=== PATIENT | female | born 1985 | race Caucasian/White ===

== ENCOUNTER → 2020-01-03 13:48 | Outpatient (CLI) | payer OTHER, SELFPAY ==
[2020-01-03 15:50] LABS: TSH w/ Reflex to FT4 2.41 uIU/mL (0.47-4.68)
== END ==
PROVIDERS: Referring Provider Obstetrics & Gynecology; Visit Provider Obstetrics & Gynecology
DX: E03.8 Other specified hypothyroidism (principal)
CPT/HCPCS: 36415; 84443

== ENCOUNTER 2021-10-30 10:15 | Emergency (ER) | payer OTHER, SELFPAY ==
[2021-10-30 10:46] VITALS: BP 122/72; PULSE 58; RESP 19; TEMP 36.7; O2SAT 99; BMI 30.1
--- NOTE | 2021-10-30 12:43 | PC.NURSE ---
Pt reports abcess with MRSA in May, similar to current abcess on breast. Has been using warm compresses without improvement.
[2021-10-30] MEDS: KETOROLAC 30 MG/ML VIAL 15 MG IM (12:58)
[2021-10-30] MEDS: DOXYCYCLINE HYCLATE 100 MG TABLET PO (12:58)
[2021-10-30] MEDS: TET,DIPH,PERTUSS(ACELL),VAC/PF 0.5 ML SYRINGE IM (12:58)
[2021-10-30] MEDS: BACITRACIN OINT 0.9 GM PCKT 1 APPLIC TOP (12:59)
[2021-10-30] MEDS: LIDOCAINE 2% INJ SDV 5 ML (12:59)
--- NOTE | 2021-10-30 14:25 | ED.SKABFB ---
HPI - Skin/Abscess/Foreign Bdy <JALEESA Moreno - Last Filed: 10/30/21 14:37> General Chief complaint: Skin/Abscess/Foreign Body Stated complaint: Infected abcess on Rt breast Time Seen by Provider: 10/30/21 12:24 Source: patient Mode of arrival: Family Vehicle Limitations: no limitations History of Present Illness HPI narrative: This is a 35-year-old female with history of abscess on her back in May of 2021 who presents to the emergency department today for redness swelling and concern for abscess on her right breast approximately 3 in medial to the areola. She is scheduled for IVF implantation in 7 days and is G 0 P0 without allergies to antibiotics. She is living on [place], denies any cultures obtained to prior wounds, she is concerned for MRSA. She has been doing warm compresses and taking Tylenol as needed for pain. She denies any IV or other substance use. She denies any fevers, chills, nausea vomiting. She states that it has started to open up with a small scab. She denies any purulence drainage. She is not sure if her tetanus is up-to-date. Related Data Previous Rx's Medication Instructions Recorded doxycycline hyclate 100 mg tablet 100 mg PO BID 7 days #14 tabs 10/30/21 mupirocin 2 % topical ointment 1 applic topical BID #15 grams 10/30/21 Allergies Allergy/AdvReac Type Severity Reaction Status Date / Time No Known Drug Allergies Allergy Verified 10/30/21 10:49 Review of Systems <JALEESA Moreno - Last Filed: 10/30/21 14:37> Review of Systems Narrative: General: denies fever, chills Head/Neck: denies headache, neck pain Eyes: denies visual changes, eye pain Cardio: denies chest pain, palpitations Respiratory: denies shortness of breath, cough GI: denies abdominal pain, nausea, vomiting, or diarrhea : denies dysuria, hematuria or flank pain MSK: denies new joint pain, muscle weakness or swelling Skin: denies rash, itching or wound Neuro: denies numbness, tingling, dizziness Patient History <JALEESA Moreno - Last Filed: 10/30/21 14:37> Social History Smoking Status: Former smoker Smoking Status: Former smoker tobacco type: cigarettes alcohol intake frequency: 0-2 drinks per day Substance Use Type: does not use Exam <JALEESA Moreno - Last Filed: 10/30/21 14:37> Narrative Exam Narrative: Reviewed vitals signs and nursing notes. General: cooperative, comfortable, in no acute distress, well groomed HEENT: symmetrical facial expressions, moist mucous membranes Chest: Patient has a 2 cm round and raised area of erythema approximately 3 in medial to her right areola at 04:00 o'clock. No fluctuance but firm nodule in the middle with opening at surface, this was picked off with a 23 gauge needle, visible cellular debris verses sebaceous gland was removed. Wound was parotid and loculations were broke up, wound is approximately 1 cm long and 0.5 cm deep, this was thoroughly irrigated with normal saline, it was not large enough for packing and let to heal by secondary intention. GI: abdomen soft, nontender to palpation, nondistended, without masses, rebound tenderness or exquisite tenderness with exam. MSK: moves all extremities, neurovascularly intact, no weakness, normal tone Skin: brisk capillary refill, without pallor or erythema Neuro: normal speech and cognition, A&O x3, ambulatory, clear speech Psych: mental status is grossly normal, congruent mood, normal affect, pleasant and cooperative Initial Vital Signs Initial Vital Signs: Vital Signs Temperature 98.1 F 10/30/21 10:46 Pulse Rate 58 L 10/30/21 10:46 Respiratory Rate 19 10/30/21 10:46 Blood Pressure 122/72 10/30/21 10:46 Pulse Oximetry 99 10/30/21 10:46 Oxygen Delivery Method 10/30/21 10:46 <Radha Lee DO - Last Filed: 11/04/21 06:58> Initial Vital Signs Initial Vital Signs: Vital Signs Temperature 98.1 F 10/30/21 10:46 Pulse Rate 58 L 10/30/21 10:46 Respiratory Rate 19 10/30/21 10:46 Blood Pressure 122/72 10/30/21 10:46 Pulse Oximetry 99 10/30/21 10:46 Oxygen Delivery Method 10/30/21 10:46 Procedures <JALEESA Moreno - Last Filed: 10/30/21 14:37> Abscess I/D I&D #1: Site: chest Side (if applicable): right Sedation/analgesia: none Local Anesthetic: lidocaine 1% Amount of anesthesia used (mL): 2 Technique: needle aspiration and incised with #11 blade Amount of fluid expressed (mL): 5 Irrigation: Yes Packing used?: none Course <JALEESA Moreno - Last Filed: 10/30/21 14:37> Orders Ordered: Discontinued Medications Bacitracin (Bacitracin Oint 0.9 Gm Pckt) 1 applic TOP NOW ONE Stop: 10/30/21 12:42 Last Admin: 10/30/21 12:59 Dose: 1 applic Documented By: CARLITOS Cephalexin HCl (Cephalexin 250 Mg Capsule) 500 mg PO NOW ONE Stop: 10/30/21 12:42 Last Admin: 10/30/21 13:05 Dose: Not Given Documented By: CTS Diphtheria/Tetanus/Acell Pertussis (Tet,Diph,Pertuss(Acell),Vac/Pf 0.5 Ml Syringe) 0.5 ml IM .ONCE ONE Stop: 10/30/21 12:42 Last Admin: 10/30/21 12:58 Dose: 0.5 ml Documented By: CTS Doxycycline Hyclate (Doxycycline Hyclate 100 Mg Tablet) 100 mg PO NOW ONE Stop: 10/30/21 12:42 Last Admin: 10/30/21 12:58 Dose: 100 mg Documented By: CTS Ketorolac Tromethamine (Ketorolac 30 Mg/Ml Vial) 15 mg IM NOW ONE Stop: 10/30/21 12:42 Last Admin: 10/30/21 12:58 Dose: 15 mg Documented By: CTS Lidocaine HCl (Lidocaine 1% 20 Ml) 20 ml INJ INTRA-OP ONE Stop: 10/30/21 12:42 Last Admin: 10/30/21 12:59 Dose: Not Given Documented By: CTS Vital Signs Vital signs: Vital Signs - 8 hr 10/30/21 10:46 Temperature 98.1 F Pulse Rate 58 L Respiratory Rate 19 Blood Pressure 122/72 Pulse Oximetry 99 Oxygen Delivery Method Room Air <Radha Lee DO - Last Filed: 11/04/21 06:58> Orders Ordered: Discontinued Medications Bacitracin (Bacitracin Oint 0.9 Gm Pckt) 1 applic TOP NOW ONE Stop: 10/30/21 12:42 Last Admin: 10/30/21 12:59 Dose: 1 applic Documented By: CTS Cephalexin HCl (Cephalexin 250 Mg Capsule) 500 mg PO NOW ONE Stop: 10/30/21 12:42 Last Admin: 10/30/21 13:05 Dose: Not Given Documented By: CTS Diphtheria/Tetanus/Acell Pertussis (Tet,Diph,Pertuss(Acell),Vac/Pf 0.5 Ml Syringe) 0.5 ml IM .ONCE ONE Stop: 10/30/21 12:42 Last Admin: 10/30/21 12:58 Dose: 0.5 ml Documented By: CTS Doxycycline Hyclate (Doxycycline Hyclate 100 Mg Tablet) 100 mg PO NOW ONE Stop: 10/30/21 12:42 Last Admin: 10/30/21 12:58 Dose: 100 mg Documented By: CTS Ketorolac Tromethamine (Ketorolac 30 Mg/Ml Vial) 15 mg IM NOW ONE Stop: 10/30/21 12:42 Last Admin: 10/30/21 12:58 Dose: 15 mg Documented By: CTS Lidocaine HCl (Lidocaine 1% 20 Ml) 20 ml INJ INTRA-OP ONE Stop: 10/30/21 12:42 Last Admin: 10/30/21 12:59 Dose: Not Given Documented By: CTS Vital Signs Vital signs: Vital Signs - 8 hr 10/30/21 10:46 Temperature 98.1 F Pulse Rate 58 L Respiratory Rate 19 Blood Pressure 122/72 Pulse Oximetry 99 Oxygen Delivery Method Room Air MDM - Skin/Abscess/Foreign Bdy <JALEESA Moreno - Last Filed: 10/30/21 14:37> MDM Narrative Medical decision making narrative: This is a 35-year-old female presents to the emergency department with a red raised lesion on her right breast concerning for abscess without known history of MRSA but concern for having since patient has had 1 skin infection earlier this year. Patient had been doing warm compresses at home and wound was superficial, scab covering the opening of likely duct containing cellular verses sebaceous material. No drainage by needle aspiration, stab incision to enlarging opening with completed and 5 mL of firm odorless davidson material came out. This was irrigated afterwards with normal saline, bacitracin was applied to the wound edges, a Steri-Strip was applied and wound edges were left loose to allow for healing from base up and drainage. Patient understands to change her Band-Aid with gauze 2 to 3 times a day and apply topical mupirocin. Patient is scheduled to have IBS implantation in 7 days and was prescribed doxycycline for cellulitis for surrounding erythema to this wound. She will stop taking his antibiotic prior to implantation. Consultation with Dr. David who is on-call for OBGYN and we reviewed medication administration guidelines and Bactrim has reproductive considerations to not prescribe within 1 month of planned . Patient agrees with plan of care, she was also prescribed topical mupirocin ointment. Her tetanus was updated today as she did not remember the last time she had 1. Wound culture was obtained and is pending. Patient is appropriate and amenable to discharge home. Vital signs are stable on repeat examination is unremarkable. Patient has been informed of results. Patient has been given strict return to ER precautions for any new or worsening symptoms. Patient understands to follow up closely with outpatient providers as instructed. Patient understands plan and agrees to discharge home. All questions and concerns answered at this time. Discharge Plan Departure Patient Disposition: Home Clinical Impression: Abscess of skin or subcutaneous tissue, Cellulitis Instructions: DI for Cellulitis -- Adult, DI for Skin Abscess Activity Restrictions/Additional Instructions: *You have been diagnosed with infected skin around a clogged duct versus abscess with cellulitis. Please continue warm compresses, you can use cool compresses if it is helpful. Please take Tylenol as needed for pain, take your antibiotic up until the last day and use topical mupirocin ointment to help prevent worsening. Please do not occlude the wound and allow it to heal from the bottom up. You can shower as usual and for cleansing you can use 1-1 with saline and iodine. Please come back if you start feeling ill or if it gets worse. You can alternate with cool compresses for comfort. *What to do: *Please continue to take your regular medications as directed. [ x New medication prescriptions sent to your pharmacy: [ [facility]] [ ] New medication written as a paper prescription [ ] No new medications given *Please follow up with your primary care provider in 2-3 days, call for an appointment. Let them know you were seen in the Emergency Department and that we asked that you be seen for follow-up. We will electronically transmit a record of today's note if your PCP is in our system *If you do not have a primary care provider please contact [phone] to establish care with one of the [facility] primary care providers. *Return to Emergency Department if you should have any new, worsening, or concerning symptoms, such as [fever greater than 101F, chills, worsening pain, persistent vomiting or other bothersome symptoms]. Prescriptions: New doxycycline hyclate 100 mg tablet 100 mg PO BID 7 Days Qty: 14 0RF mupirocin 2 % ointment 1 applic topical BID Qty: 15 0RF Referrals: Rafaela Prado ARNP [Primary Care Provider] - Visit Report Forms: Patient Portal/API <Radha Lee DO - Last Filed: 11/04/21 06:58> Cosign ED Attending [place] Attestation: I was immediately available in the department for consultation. Documentation has been reviewed. I agree with assessment and plan.
== END 2021-10-30 14:06 | disposition home or self-care (01) ==
PROVIDERS: Emergency Provider Nurse Practitioner Critical Care Medicine; PCP Nurse Practitioner Family
DX: N61.1 Abscess of the breast and nipple (principal); Z23 Encounter for immunization
CPT/HCPCS: 10060; 87070; 87075; 87077; 87147; 87185; 87186; 87205; 90471; 96372; 99283; 90715; J1885

== ENCOUNTER → 2021-11-18 14:59 | Outpatient (CLI) | payer OTHER, SELFPAY ==
[2021-11-18 16:30] LABS: HCG Quantitative /Beta subunit 322.8 mIU/mL
== END ==
PROVIDERS: PCP Nurse Practitioner Family; Referring Provider Obstetrics & Gynecology Reproductive Endocrinology; Visit Provider Obstetrics & Gynecology Reproductive Endocrinology
DX: Z32.01 Encounter for pregnancy test, result positive (principal); Z13.29 Encounter for screening for other suspected endocrine disorder
CPT/HCPCS: 36415; 84702

== ENCOUNTER → 2021-11-20 07:40 | Outpatient (CLI) | payer OTHER, SELFPAY ==
[2021-11-20 09:51] LABS: HCG Quantitative /Beta subunit 643.5 mIU/mL
[2021-11-20 10:16] LABS: Thyroid Stimulating Hormone 5.61 uIU/mL (0.47-4.68)
== END ==
PROVIDERS: PCP Nurse Practitioner Family; Referring Provider Obstetrics & Gynecology Reproductive Endocrinology; Visit Provider Obstetrics & Gynecology Reproductive Endocrinology
DX: Z32.01 Encounter for pregnancy test, result positive (principal); Z13.29 Encounter for screening for other suspected endocrine disorder
CPT/HCPCS: 36415; 84443; 84702

== ENCOUNTER 2022-12-24 05:42 | Emergency (ER) | payer OTHER, SELFPAY ==
[2022-12-24] VITALS (11 sets, daily range): BP systolic 100–125; BP diastolic 57–70; PULSE 49–74; RESP 1–27; TEMP 36.6; O2SAT 96–100; BMI 30.1
--- NOTE | 2022-12-24 05:49 | DI.RAD.S_ITS ---
PROCEDURE: XR CHEST 1V INDICATIONS: chest pain TECHNIQUE: One view of the chest was acquired. COMPARISON: None. FINDINGS: Surgical changes and devices: None. Lungs and pleura: No consolidation or effusion. Mediastinum: Normal heart size Bones and chest wall: No suspicious bony lesions. Overlying soft tissues appear unremarkable. IMPRESSION: No acute radiographic abnormality on this single view study. Agree with prelim report. Dictated by: Leo Connell M.D. on 12/24/2022 at 7:51 Approved by: Leo Connell M.D. on 12/24/2022 at 7:52
[2022-12-24 06:00] LABS: Add Manual Diff / Slide Review NO; Basophils Absolute Auto 0 /uL (0-100); Basophils Percent Auto 0.3 % (0-2); Eosinophils Absolute Auto 100 /uL (0-450); Eosinophils Percent Auto 0.9 % (2-4); Hemoglobin 13.6 g/dL (12.0-16.0); Lymphocytes Absolute Auto 1300 /uL (1100-4500); Lymphocytes Percent Auto 14.3 % (25-40); Mean Corpuscular HGB Conc 34.1 % (30-36); Mean Corpuscular Hemoglobin 29.5 PG (26-34); Mean Corpuscular Volume 86.7 fL (80-100); Monocytes Absolute Auto 500 /uL (0-900); Monocytes Percent Auto 5.6 % (3-14); Neutrophils Absolute Auto 7200 /uL (1500-7000); Neutrophils Percent Auto 78.9 % (50-75); Platelet Count 230 X10^3/uL (150-400); Red Blood Cell Count 4.61 X10^6/uL (4.0-5.2); Red Cell Distribution Width 13.3 % (11.6-14.8); White Blood Cell Count 9.1 X10^3/uL (4.5-11.0)
--- NOTE | 2022-12-24 06:00 | ED_ITS ---
HPI - Chest Pain <Radha Lee DO - Last Filed: 12/26/22 07:09> General Chief Complaint: Chest Pain Stated Complaint: chest pain Time Seen by Provider: 12/24/22 05:49 Source: patient and EMS Mode of arrival: EMS Limitations: no limitations History of Present Illness HPI narrative: Patient is a 37-year-old female without significant past medical history presenting today with sudden onset of epigastric pain. She reports that she was sleeping when woke her from sleep he describes it as sharp stabbing pressure radiating to both right and left upper abdomen sometimes into her chest. It lasted for about 35 minutes ultimately went away. She did not take any medicine for it EMS gave her some Zofran because she was nauseous she is chest pain-free. She reports that she had an episode like this about 3 months ago and did not seek treatment at that time. She reports that she traveled to [place] a month ago. But has not had an and shortness of breath. She reports that she had numbness in both her arms she was in a full-body sweat she could not take a deep breath for 20 minutes. Related Data Previous Rx's Medication Instructions Recorded mupirocin 2 % topical ointment 1 applic topical BID #15 grams 10/30/21 Allergies Allergy/AdvReac Type Severity Reaction Status Date / Time No Known Drug Allergies Allergy Verified 10/30/21 10:49 Review of Systems <Ronny Parker MD - Last Filed: 01/04/23 07:19> Review of Systems Narrative: GENERAL: negative chills, fatigue, malaise, fever, sweats. HEENT: negative sinus pain, ear pain, sore throat RESPIRATORY: negative dyspnea, cough CARDIOVASCULAR: Positive chest pain, negative palpitations GASTROINTESTINAL: negative nausea, vomiting, positive abdominal pain : negative dysuria, frequency, hematuria MUSCULOSKELETAL: negative muscle or bony pain SKIN: negative rash, skin lesions NEUROLOGIC: negative weakness, numbness ROS Unobtainable: All systems reviewed & are unremarkable except as noted in HPI and below Patient History <Radha Lee DO - Last Filed: 12/26/22 07:09> Social History Smoking Status: Former smoker Smoking Status: Former smoker tobacco type: cigarettes alcohol intake frequency: 0-2 drinks per day Substance Use Type: does not use Exam <Radha Lee DO - Last Filed: 12/26/22 07:09> Initial Vital Signs Initial Vital Signs: Vital Signs Temperature 97.8 F 12/24/22 05:30 Pulse Rate 60 12/24/22 05:30 Respiratory Rate 18 12/24/22 05:30 Blood Pressure 125/66 12/24/22 05:30 Pulse Oximetry 97 12/24/22 05:30 Oxygen Delivery Method Room Air 12/24/22 05:30 GENERAL: Alert well-appearing 37-year-old female and in no acute distress. HEENT: Head atraumatic,EOMI, pupils reactive, face symmetric, moist mucous membranes CARDIOVASCULAR: Regular rate and rhythm without murmurs, rubs or gallops. RESPIRATORY: Breath sounds equal bilaterally, no wheezes rales or rhonchi. ABDOMEN: Soft, nontender negative Prado's sign minimal epigastric pain no guarding no rebound no left upper quadrant pain EXTREMITIES: Normal range of motion, no clubbing or edema. Neurovascularly intact NEUROLOGICAL: Alert and oriented x4.Normal gait and speech. Cranial nerves II through XII grossly intact. SKIN: Warm, dry, no laceration, no petechiae, no rashes or lesions. <Ronny Parker MD - Last Filed: 01/04/23 07:19> Initial Vital Signs Initial Vital Signs: Vital Signs Temperature 97.8 F 12/24/22 05:30 Pulse Rate 60 12/24/22 05:30 Respiratory Rate 18 12/24/22 05:30 Blood Pressure 125/66 12/24/22 05:30 Pulse Oximetry 97 12/24/22 05:30 Oxygen Delivery Method Room Air 12/24/22 05:30 Course <Radha Lee DO - Last Filed: 12/26/22 07:09> Orders Ordered: Discontinued Medications Sodium Chloride (Normal Saline 0.9%) 500 mls @ 1,000 mls/hr IV BOLUS ONE Stop: 12/24/22 08:06 Last Infusion: 12/24/22 09:09 Dose: Infused Documented By: Admin: 12/24/22 08:10 Dose: 1,000 mls/hr Documented By: RUSSEL Vital Signs Vital signs: Vital Signs - 8 hr 12/24/22 05:30 12/24/22 05:46 12/24/22 05:47 Temperature 97.8 F Pulse Rate 60 64 64 Respiratory Rate 18 20 20 Blood Pressure 125/66 Pulse Oximetry 97 96 Oxygen Delivery Method Room Air Room Air 12/24/22 05:47 12/24/22 06:00 12/24/22 06:00 Temperature Pulse Rate 59 L Respiratory Rate 17 Blood Pressure 125/66 107/59 L Pulse Oximetry 97 Oxygen Delivery Method 12/24/22 06:30 12/24/22 06:30 12/24/22 07:00 Temperature Pulse Rate 53 L 74 Respiratory Rate 17 27 H Blood Pressure 105/57 L Pulse Oximetry 97 98 Oxygen Delivery Method 12/24/22 07:15 12/24/22 07:15 12/24/22 07:30 Temperature Pulse Rate 68 Respiratory Rate 18 Blood Pressure 115/70 108/64 Pulse Oximetry 99 Oxygen Delivery Method 12/24/22 07:30 12/24/22 08:00 12/24/22 08:00 Temperature Pulse Rate 57 L 56 L Respiratory Rate 14 1 L Blood Pressure 114/70 Pulse Oximetry 98 100 Oxygen Delivery Method 12/24/22 08:30 12/24/22 08:30 12/24/22 09:00 Temperature Pulse Rate 52 L Respiratory Rate 17 Blood Pressure 109/66 100/60 Pulse Oximetry 99 Oxygen Delivery Method 12/24/22 09:00 Temperature Pulse Rate 49 L Respiratory Rate 16 Blood Pressure Pulse Oximetry 98 Oxygen Delivery Method <Ronny Parker MD - Last Filed: 01/04/23 07:19> Orders Ordered: Discontinued Medications Sodium Chloride (Normal Saline 0.9%) 500 mls @ 1,000 mls/hr IV BOLUS ONE Stop: 12/24/22 08:06 Last Infusion: 12/24/22 09:09 Dose: Infused Documented By: Admin: 12/24/22 08:10 Dose: 1,000 mls/hr Documented By: RUSSEL Vital Signs Vital signs: Vital Signs - 8 hr 12/24/22 05:30 12/24/22 05:46 12/24/22 05:47 Temperature 97.8 F Pulse Rate 60 64 64 Respiratory Rate 18 20 20 Blood Pressure 125/66 Pulse Oximetry 97 96 Oxygen Delivery Method Room Air Room Air 12/24/22 05:47 12/24/22 06:00 12/24/22 06:00 Temperature Pulse Rate 59 L Respiratory Rate 17 Blood Pressure 125/66 107/59 L Pulse Oximetry 97 Oxygen Delivery Method 12/24/22 06:30 12/24/22 06:30 12/24/22 07:00 Temperature Pulse Rate 53 L 74 Respiratory Rate 17 27 H Blood Pressure 105/57 L Pulse Oximetry 97 98 Oxygen Delivery Method 12/24/22 07:15 12/24/22 07:15 12/24/22 07:30 Temperature Pulse Rate 68 Respiratory Rate 18 Blood Pressure 115/70 108/64 Pulse Oximetry 99 Oxygen Delivery Method 12/24/22 07:30 12/24/22 08:00 12/24/22 08:00 Temperature Pulse Rate 57 L 56 L Respiratory Rate 14 1 L Blood Pressure 114/70 Pulse Oximetry 98 100 Oxygen Delivery Method 12/24/22 08:30 12/24/22 08:30 12/24/22 09:00 Temperature Pulse Rate 52 L Respiratory Rate 17 Blood Pressure 109/66 100/60 Pulse Oximetry 99 Oxygen Delivery Method 12/24/22 09:00 Temperature Pulse Rate 49 L Respiratory Rate 16 Blood Pressure Pulse Oximetry 98 Oxygen Delivery Method MDM - Chest Pain <Radha Lee, DO - Last Filed: 12/26/22 07:09> Lab Data 12/24/22 05:30 12/24/22 05:30 Labs: Lab Results 12/24/22 12/24/22 Range/Units 05:22 05:30 WBC 9.1 (4.5-11.0) X10^3/uL RBC 4.61 (4.0-5.2) X10^6/uL Hgb 13.6 (12.0-16.0) g/dL Hct 40.0 (36-46) % MCV 86.7 (80-100) fL MCH 29.5 (26-34) PG MCHC 34.1 (30-36) % RDW 13.3 (11.6-14.8) % Plt Count 230 (150-400) X10^3/uL Neut % (Auto) 78.9 H (50-75) % Lymph % (Auto) 14.3 L (25-40) % [place] % (Auto) 5.6 (3-14) % Eos % (Auto) 0.9 L (2-4) % Baso % (Auto) 0.3 (0-2) % Neut # (Auto) 7200 H (8979-7146) /uL Lymph # (Auto) 1300 (6379-3835) /uL [place] # (Auto) 500 (0-900) /uL Eos # (Auto) 100 (0-450) /uL Baso # (Auto) 0 (0-100) /uL D-Dimer < 215 (<500) ng/ml Sodium 137 (137-145) mmol/L Potassium 3.7 (3.4-5.1) mmol/L Chloride 103 (98-107) mmol/L Carbon Dioxide 25 (22-32) mmol/L BUN 13 (7-17) mg/dL Creatinine 0.78 (0.52-1.04) mg/dL Estimated GFR > 60 (>60) mL/min BUN/Creatinine Ratio 16.7 (6-22) Glucose 99 (70-100) mg/dL Calcium 9.2 (8.4-10.2) mg/dL Total Bilirubin 0.8 (0.2-1.3) mg/dL AST 115 H (14-36) IU/L ALT 65 H (<35) IU/L Alkaline Phosphatase 61 (38-126) U/L Total Creatine Kinase 112 (30-135) U/L Troponin I < 0.012 (0.01-0.034) ng/mL Total Protein 6.8 (6.3-8.2) g/dL Albumin 4.0 (3.5-5.0) g/dL Globulin 2.8 (1.7-4.1) g/dL Albumin/Globulin Ratio 1.4 (1.0-2.8) Lipase 133 (23-300) U/L Point of Care Testing Test Results Negative Urine Dip Bedside Urine Glucose Negative Bedside Urine Bilirubin - Negative Bedside Urine Ketone - Negative Urine Specific [place] 1.015 Bedside Urine Occult Blood - Negative Bedside Urine pH 6.0 Bedside Urine Protein - Negative Bedside Urine Urobilinogen - Negative Bedside Urine Nitrite - Negative Bedside Urine Leukocytes - Negative Esterase Imaging Data Chest x-ray: Radiologist's Impression: No acute cardiopulmonary process ECG Data Interpretation: Normal sinus rhythm rate 59 OK interval 180 QRS [address] changes no T- wave inversions Q-wave noted in V2 only no priors to compare MDM Narrative Medical decision making narrative: Patient healthy 37-year-old female who presents with sudden onset of epigastric pain sweatiness and nausea lasting for about 20 minutes. It is now completely resolved. Her abdomen is reexamined remains nontender. Blood work is overall reassuring she has no leukocytosis anemia thrombocytopenia electrolyte abnormality or elevated bilirubin, AST 115 ALT 65 lipase negative troponin negative, D-dimer is also undetectable. Patient's symptoms not consistent with acute coronary syndrome he has no risk factors in the low heart score. She did recently travel over to [place] where she stayed for 3 weeks her D-dimer is negative. She is not on any control. Patient is extremely low heart score I do not believe this to be cardiac. Her abdomen now remains non tender possible cholelithiasis. Ultrasound ordered. Patient signed out to Dr. Miranda <Ronny Parker MD - Last Filed: 01/04/23 07:19> Lab Data Labs: Lab Results 12/24/22 12/24/22 Range/Units 05:22 05:30 WBC 9.1 (4.5-11.0) X10^3/uL RBC 4.61 (4.0-5.2) X10^6/uL Hgb 13.6 (12.0-16.0) g/dL Hct 40.0 (36-46) % MCV 86.7 (80-100) fL MCH 29.5 (26-34) PG MCHC 34.1 (30-36) % RDW 13.3 (11.6-14.8) % Plt Count 230 (150-400) X10^3/uL Neut % (Auto) 78.9 H (50-75) % Lymph % (Auto) 14.3 L (25-40) % [place] % (Auto) 5.6 (3-14) % Eos % (Auto) 0.9 L (2-4) % Baso % (Auto) 0.3 (0-2) % Neut # (Auto) 7200 H (4983-2202) /uL Lymph # (Auto) 1300 (0300-0553) /uL [place] # (Auto) 500 (0-900) /uL Eos # (Auto) 100 (0-450) /uL Baso # (Auto) 0 (0-100) /uL D-Dimer < 215 (<500) ng/ml Sodium 137 (137-145) mmol/L Potassium 3.7 (3.4-5.1) mmol/L Chloride 103 (98-107) mmol/L Carbon Dioxide 25 (22-32) mmol/L BUN 13 (7-17) mg/dL Creatinine 0.78 (0.52-1.04) mg/dL Estimated GFR > 60 (>60) mL/min BUN/Creatinine Ratio 16.7 (6-22) Glucose 99 (70-100) mg/dL Calcium 9.2 (8.4-10.2) mg/dL Total Bilirubin 0.8 (0.2-1.3) mg/dL AST 115 H (14-36) IU/L ALT 65 H (<35) IU/L Alkaline Phosphatase 61 (38-126) U/L Total Creatine Kinase 112 (30-135) U/L Troponin I < 0.012 (0.01-0.034) ng/mL Total Protein 6.8 (6.3-8.2) g/dL Albumin 4.0 (3.5-5.0) g/dL Globulin 2.8 (1.7-4.1) g/dL Albumin/Globulin Ratio 1.4 (1.0-2.8) Lipase 133 (23-300) U/L Point of Care Testing Test Results Negative Urine Dip Bedside Urine Glucose Negative Bedside Urine Bilirubin - Negative Bedside Urine Ketone - Negative Urine Specific [place] 1.015 Bedside Urine Occult Blood - Negative Bedside Urine pH 6.0 Bedside Urine Protein - Negative Bedside Urine Urobilinogen - Negative Bedside Urine Nitrite - Negative Bedside Urine Leukocytes - Negative Esterase Imaging Data Chest x-ray: Radiologist's Impression: No acute cardiopulmonary process [address] [address] XRay Report Signed Patient: Laury Gutierres MR#: [id number] : 1985 Acct:[id number] Age/Sex: 37 / F Date of Service: 12/24/22 Loc: ED Accession Number: [id number] Procedure: XR chest 1V Ordering Provider: Radha Lee D.O. PROCEDURE: XR CHEST 1V INDICATIONS: chest pain TECHNIQUE: One view of the chest was acquired. COMPARISON: None. FINDINGS: Surgical changes and devices: None. Lungs and pleura: No consolidation or effusion. Mediastinum: Normal heart size Bones and chest wall: No suspicious bony lesions. Overlying soft tissues appear unremarkable. IMPRESSION: No acute radiographic abnormality on this single view study. Agree with prelim report. Dictated by: Leo Connell M.D. on 12/24/2022 at 7:51 Approved by: Leo Connell M.D. on 12/24/2022 at 7:52 US - abdomen: Radiologist's Impression: [address] [address] Ultrasound Report Signed Patient: Laury Gutierres MR#: [id number] : 1985 Acct:[id number] Age/Sex: 37 / F Date of Service: 12/24/22 Loc: ED Accession Number: [id number] Procedure: US abdomen limited Ordering Provider: Radha Lee D.O. PROCEDURE: US ABDOMEN LIMITED INDICATIONS: RIGHT UPPER QUADRANT PAIN TECHNIQUE: Real-time focused scanning was performed of the abdomen, with image documentation. COMPARISON: None. FINDINGS: Liver measures 16 cm. Echogenic lesion in the right lobe measures 1.4 cm. Cholelithiasis. No focal tenderness no pathologic wall thickening. CBD measures 3 mm. Visualized pancreas unremarkable on ultrasound. IMPRESSION: Cholelithiasis without Prado's sign to suggest cholecystitis. Echogenic lesion measuring 1.4 cm in the right lower liver, most commonly a benign hemangioma assuming patient does not have a primary malignancy history. Dictated by: Leo Connell M.D. on 12/24/2022 at 7:52 Approved by: Leo Connell M.D. on 12/24/2022 at 7:54 CT scan - abdomen/pelvis: Radiologist's Impression: [address] [address] [address] Scan Report Signed Patient: Laury Gutierres MR#: [id number] : 1985 Acct:[id number] Age/Sex: 37 / F Date of Service: 12/24/22 Loc: ED Accession Number: [id number] Procedure: CT abdomen pelvis w con Ordering Provider: Ronny Parker MD PROCEDURE: CT ABDOMEN PELVIS W CON INDICATIONS: IV contrast only/epigastric pain TECHNIQUE: After the administration of intravenous contrast, axial sections acquired from the lung bases to the pubic symphysis. Coronal and sagittal reformats were performed. For radiation dose reduction, the following was used: automated exposure control, adjustment of mA and/or kV according to patient size. COMPARISON: None. FINDINGS: Image quality: Excellent. Lung bases: Please refer to separately dictated CT of the chest. ABDOMEN: Liver: Indeterminate hepatic hypodensities measuring 1.4 centimeters (2/16) and 1.6 centimeters (2/27). Gallbladder: Multiple gallstones within the gallbladder. No gallbladder wall thickening or pericholecystic fluid is seen. Biliary ducts: Unremarkable. Pancreas: Unremarkable. Spleen: Unremarkable. Splenules are noted. Adrenal Glands: Unremarkable. Kidneys and Ureters: Unremarkable. Stomach and Bowel: Stomach, small bowel loops, and colon are unremarkable. Normal appendix. Peritoneum: No abnormal intraperitoneal fluid. No free air. Ventral Wall: No hernias. Abdominal Nodes: No retroperitoneal or mesenteric adenopathy by size criteria. Vessels: Aorta and inferior vena cava are normal in size. PELVIS: Pelvic Organs: Right ovarian cyst measuring 2.1 centimeters.. Bladder: Unremarkable. Pelvic Nodes: No enlarged lymph nodes. Miscellaneous: No hernias are seen. Bones: Unremarkable. IMPRESSION: 1. Cholelithiasis without evidence of acute cholecystitis. 2. There are 2 indeterminate liver lesions. May represent hemangiomas in the absence of primary malignancy. Metastatic disease is not entirely excluded. Consider follow-up ultrasound or liver protocol MRI or CT on a nonurgent basis. 3. Right ovarian cyst measuring 2.1 centimeters, likely a simple cyst. Dictated by: Wellington Duffy M.D. on 12/24/2022 at 8:17 Approved by: Wellington Duffy M.D. on 12/24/2022 at 8:24 CT scan - chest: Radiologist's Impression: [place] [address] CT Scan Report Signed Patient: Laury Gutierres MR#: [id number] : 1985 Acct:[id number] Age/Sex: 37 / F Date of Service: 12/24/22 Loc: ED Accession Number: [id number] Procedure: CT angio chest PE protocol Ordering Provider: Ronny Parker MD PROCEDURE: CT ANGIO CHEST PE PROTOCOL INDICATIONS: Chest pain TECHNIQUE: After the administration of intravenous contrast, 2 mm thick sections acquired from the pulmonary apices to the posterior costophrenic angles. 3-dimensional maximum intensity projection (MIP) coronal and sagittal reformats were then acquired through the thorax. For radiation dose reduction, the following was used: automated exposure control, adjustment of mA and/or kV according to patient size. COMPARISON: None. FINDINGS: Image quality: Excellent. Pulmonary arteries: Pulmonary arteries are normal in size, and demonstrate no intraluminal filling defects to suggest central pulmonary embolism. Lungs and pleura: Lungs are clear. No pleural effusions or pneumothorax. Central and peripheral airways are patent. 3 millimeter left lower lobe nodule (7/132). Left upper lobe 3 millimeter nodule (7/95). Left upper lobe 5 millimeter nodule (7/87). Right upper lobe 3 millimeter nodule (7/121). 5 millimeter right lower lobe perifissural nodule (7/175), likely a perifissural lymph node. Right lower lobe 4 millimeter nodule (7/164). Additional scattered nodules measuring 4 millimeters or less. Mediastinum: Heart size is normal, without pericardial effusion. Increased attenuation in the anterior mediastinum, likely residual thymus. No mediastinal or hilar adenopathy. Thoracic aorta is normal in caliber and enhancement. Esophagus is normal in caliber, without hiatal hernia. Bones and chest wall: No suspicious bony lesions. Ribs and thoracic spine appear intact throughout. Thyroid gland is unremarkable were visualized. No axillary or supraclavicular adenopathy. Abdomen: Please refer to separately dictated CT of the abdomen and pelvis. IMPRESSION: 1. No evidence of pulmonary embolism. 2. No focal pulmonary consolidations. 3. Scattered pulmonary nodules measuring 5 millimeters or less. Given patient's age and in the absence of known malignancy, these are favored to be benign. Follow-up can be obtained as clinically indicated. Dictated by: Wellington Duffy M.D. on 12/24/2022 at 8:25 Approved by: Wellington Duffy M.D. on 12/24/2022 at 8:32 MDM Narrative Medical decision making narrative: Patient healthy 37-year-old female who presents with sudden onset of epigastric pain sweatiness and nausea lasting for about 20 minutes. It is now completely resolved. Her abdomen is reexamined remains nontender. Blood work is overall reassuring she has no leukocytosis anemia thrombocytopenia electrolyte abnormality or elevated bilirubin, AST 115 ALT 65 lipase negative troponin negative, D-dimer is also undetectable. Patient's symptoms not consistent with acute coronary syndrome he has no risk factors in the low heart score. She did recently travel over to [place] where she stayed for 3 weeks her D-dimer is negative. She is not on any control. Patient is extremely low heart score I do not believe this to be cardiac. Her abdomen now remains non tender possible cholelithiasis. Ultrasound ordered. Patient signed out to Dr. Parker After history and exam CBC CMP troponin EKG ultrasound gallbladder CT chest abdomen pelvis D-dimer [facility] CC: Abdominal pain Complicating co-morbidities: None Data collected from: Patient and Medical records reviewed: No recent visit for this complaint Differential considered: Gastritis cholecystitis symptomatic cholelithiasis biliary dyskinesia STEMI non-STEMI aortic dissection pulmonary embolism Exam documented above, pertinent findings include: Nontender abdomen Lab Test results independently reviewed as above. Pertinent findings: WBC 9.1 hemoglobin 13.6 sodium 137 BUN 13 creatinine 0.78 total bilirubin 0.8 AST 115 ALT 65 troponin less than 0.012 urinalysis negative nitrite negative leukocyte esterase negative Independently reviewed EKG sinus bradycardia rate [address] elevation or depression Imaging studies independently reviewed: Chest x-ray no acute finding Abdominal ultrasound cholelithiasis without cholecystitis CT chest no acute finding CT abdomen pelvis no acute finding Consultations: 8:[address] Shah of it, patient can be discharged home and follow up in the office for outpatient Treatments: Normal saline Re-evaluations: 9:00 a.m.. Pain-free at this time. I did review with patient results and treatment plan. They agree for discharge home. Return precautions reviewed. Discussion: Appropriate for discharge home. Exam and laboratory studies and imaging are reassuring. Nontoxic discharge. Return precautions reviewed with patient. General surgery was consulted. Patient and agree for follow up in the office for outpatient evaluation Diagnosis: Cholelithiasis 7:[address] Parker:Keith: ?sign out from Dr Lee, laboratory studies and exam is reassuring. Ultrasound results are pending. I will need to contact General surgery for disposition. 8:[address] Ontiveros, general surgery, patient can be discharged home and follow up in the office for outpatient re-evaluation and possible outpatient surgery. Pain is controlled. Results are reassuring. 8:55 a.m.. Patient remains pain-free. No symptoms. at bedside. They do agree for discharge home and outpatient follow up with Dr. Ontiveros for re- evaluation and possible outpatient surgery. I did review the results with them. Her source of discomfort likely her gallbladder. Return precautions reviewed with them. They desire discharge home. Nontoxic at discharge Discharge Plan Departure Patient Disposition: Home Clinical Impression: Cholelithiasis Qualifiers: Cholelithiasis location: gallbladder Cholecystitis presence: without cholecystitis Biliary obstruction: without biliary obstruction Qualified Code(s): K80.20 - Calculus of gallbladder without cholecystitis without obstruction Instructions: DI for Gallstones Activity Restrictions/Additional Instructions: Please call provided general surgery office today, Dr. Ontiveros has been contacted. Informed the office he would like to see you in the office urgently for re-evaluation and to schedule for possible surgery for your gallbladder. Return if worse if any questions or concerns. Your laboratory studies and radiographs are reassuring today. No fried fatty greasy foods. Return immediately if worse if any questions or concerns. No prescriptions are indicated at this time. Prescriptions: No Action mupirocin 2 % ointment 1 applic topical BID Qty: 15 0RF Referrals: Devante Ontiveros MD [Physician] - Rafaela Prado ARNP [Primary Care Provider] - Stand Alone Forms: Patient Portal/API, Work Release Note
[2022-12-24 06:08] LABS: D Dimer < 215 ng/ml (<500)
[2022-12-24 06:11] LABS: Alanine Aminotransferase 65 IU/L (<35); Albumin Globulin Ratio 1.4 (1.0-2.8); Alkaline Phosphatase 61 U/L (38-126); Aspartate Aminotransferase 115 IU/L (14-36); BUN Creatinine Ratio 16.7 (6-22); Bilirubin Total 0.8 mg/dL (0.2-1.3); Blood Urea Nitrogen 13 mg/dL (7-17); Calcium 9.2 mg/dL (8.4-10.2); Carbon Dioxide 25 mmol/L (22-32); Chloride 103 mmol/L (98-107); Creatine Kinase 112 U/L (30-135); Estimated Glomerular Filt Rate > 60 mL/min (>60); Globulin 2.8 g/dL (1.7-4.1); Glucose 99 mg/dL (70-100); HEMOLYSIS < 15 (0-50); Lipase 133 U/L (23-300); Potassium 3.7 mmol/L (3.4-5.1); Sodium 137 mmol/L (137-145); Total Protein 6.8 g/dL (6.3-8.2)
[2022-12-24 06:22] LABS: Troponin I < 0.012 ng/mL (0.01-0.034)
--- NOTE | 2022-12-24 06:43 | DI.US.S_ITS ---
PROCEDURE: US ABDOMEN LIMITED INDICATIONS: RIGHT UPPER QUADRANT PAIN TECHNIQUE: Real-time focused scanning was performed of the abdomen, with image documentation. COMPARISON: None. FINDINGS: Liver measures 16 cm. Echogenic lesion in the right lobe measures 1.4 cm. Cholelithiasis. No focal tenderness no pathologic wall thickening. CBD measures 3 mm. Visualized pancreas unremarkable on ultrasound. IMPRESSION: Cholelithiasis without Prado's sign to suggest cholecystitis. Echogenic lesion measuring 1.4 cm in the right lower liver, most commonly a benign hemangioma assuming patient does not have a primary malignancy history. Dictated by: Leo Connell M.D. on 12/24/2022 at 7:52 Approved by: Leo Connell M.D. on 12/24/2022 at 7:54
--- NOTE | 2022-12-24 07:37 | DI.CT.S_ITS ---
PROCEDURE: CT ABDOMEN PELVIS W CON INDICATIONS: IV contrast only/epigastric pain TECHNIQUE: After the administration of intravenous contrast, axial sections acquired from the lung bases to the pubic symphysis. Coronal and sagittal reformats were performed. For radiation dose reduction, the following was used: automated exposure control, adjustment of mA and/or kV according to patient size. COMPARISON: None. FINDINGS: Image quality: Excellent. Lung bases: Please refer to separately dictated CT of the chest. ABDOMEN: Liver: Indeterminate hepatic hypodensities measuring 1.4 centimeters (2/16) and 1.6 centimeters (2/27). Gallbladder: Multiple gallstones within the gallbladder. No gallbladder wall thickening or pericholecystic fluid is seen. Biliary ducts: Unremarkable. Pancreas: Unremarkable. Spleen: Unremarkable. Splenules are noted. Adrenal Glands: Unremarkable. Kidneys and Ureters: Unremarkable. Stomach and Bowel: Stomach, small bowel loops, and colon are unremarkable. Normal appendix. Peritoneum: No abnormal intraperitoneal fluid. No free air. Ventral Wall: No hernias. Abdominal Nodes: No retroperitoneal or mesenteric adenopathy by size criteria. Vessels: Aorta and inferior vena cava are normal in size. PELVIS: Pelvic Organs: Right ovarian cyst measuring 2.1 centimeters.. Bladder: Unremarkable. Pelvic Nodes: No enlarged lymph nodes. Miscellaneous: No hernias are seen. Bones: Unremarkable. IMPRESSION: 1. Cholelithiasis without evidence of acute cholecystitis. 2. There are 2 indeterminate liver lesions. May represent hemangiomas in the absence of primary malignancy. Metastatic disease is not entirely excluded. Consider follow-up ultrasound or liver protocol MRI or CT on a nonurgent basis. 3. Right ovarian cyst measuring 2.1 centimeters, likely a simple cyst. Dictated by: Wellington Duffy M.D. on 12/24/2022 at 8:17 Approved by: Wellington Duffy M.D. on 12/24/2022 at 8:24
--- NOTE | 2022-12-24 07:37 | DI.CT.S_ITS ---
PROCEDURE: CT ANGIO CHEST PE PROTOCOL INDICATIONS: Chest pain TECHNIQUE: After the administration of intravenous contrast, 2 mm thick sections acquired from the pulmonary apices to the posterior costophrenic angles. 3-dimensional maximum intensity projection (MIP) coronal and sagittal reformats were then acquired through the thorax. For radiation dose reduction, the following was used: automated exposure control, adjustment of mA and/or kV according to patient size. COMPARISON: None. FINDINGS: Image quality: Excellent. Pulmonary arteries: Pulmonary arteries are normal in size, and demonstrate no intraluminal filling defects to suggest central pulmonary embolism. Lungs and pleura: Lungs are clear. No pleural effusions or pneumothorax. Central and peripheral airways are patent. 3 millimeter left lower lobe nodule (7/132). Left upper lobe 3 millimeter nodule (7/95). Left upper lobe 5 millimeter nodule (7/87). Right upper lobe 3 millimeter nodule (7/121). 5 millimeter right lower lobe perifissural nodule (7/175), likely a perifissural lymph node. Right lower lobe 4 millimeter nodule (7/164). Additional scattered nodules measuring 4 millimeters or less. Mediastinum: Heart size is normal, without pericardial effusion. Increased attenuation in the anterior mediastinum, likely residual thymus. No mediastinal or hilar adenopathy. Thoracic aorta is normal in caliber and enhancement. Esophagus is normal in caliber, without hiatal hernia. Bones and chest wall: No suspicious bony lesions. Ribs and thoracic spine appear intact throughout. Thyroid gland is unremarkable were visualized. No axillary or supraclavicular adenopathy. Abdomen: Please refer to separately dictated CT of the abdomen and pelvis. IMPRESSION: 1. No evidence of pulmonary embolism. 2. No focal pulmonary consolidations. 3. Scattered pulmonary nodules measuring 5 millimeters or less. Given patient's age and in the absence of known malignancy, these are favored to be benign. Follow-up can be obtained as clinically indicated. Dictated by: Wellington Duffy M.D. on 12/24/2022 at 8:25 Approved by: Wellington Duffy M.D. on 12/24/2022 at 8:32
[2022-12-24] MEDS: SODIUM CHLORIDE 0.9% 500 ML 1000 ML IV (08:10)
== END 2022-12-24 09:20 | disposition home or self-care (01) ==
PROVIDERS: Emergency Medicine; Emergency Provider Emergency Medicine; PCP Nurse Practitioner Family
DX: K80.20 Calculus of gallbladder without cholecystitis without obstruction (principal); R07.9 Chest pain, unspecified
CPT/HCPCS: 36415; 71045; 71275; 74177; 76705; 80053; 81003; 81025; 82550; 83690; 84484; 85025; 85379; 93005; 96360; 99284; Q9967

== ENCOUNTER → 2023-01-10 08:52 | Outpatient (CLI) | payer OTHER, SELFPAY ==
--- NOTE | 2023-01-10 08:54 | DI.MRI.S_ITS ---
PROCEDURE: MR ABDOMEN WO/W CON INDICATIONS: liver lesions on recent CT and US TECHNIQUE: Coronal HASTE, axial 2D FLASH in- and [id number]; axial breath-hold T2 FSE. Dynamic axial VIBE during the administration of contrast; post-contrast coronal VIBE or 2D FLASH with fat saturation from the hepatic dome to the iliac crests. Optional diffusion weighted imaging and ADC may be performed. COMPARISON: [facility], CT, CT ANGIO CHEST PE PROTOCOL, 12/24/2022, 7:50. [facility], CT, CT ABDOMEN PELVIS W CON, 12/24/2022, 7:50. [facility], US, US ABDOMEN LIMITED, 12/24/2022, 6:53. FINDINGS: Image quality: Diagnostic. Lung bases: No basal pleural effusions. Heart size is normal. Liver: T2 hyperintense lesions in the right liver measuring 1.1 cm and 2.3 cm, (5/15, 23). No enhancement demonstrated. No intralesional fat. No restricted diffusion. Gallbladder: Filled with gallstones. Biliary tree: No dilation. Pancreas: No ductal dilation. Spleen: Normal size. Adrenal glands: No adrenal nodules. Kidneys: No hydronephrosis. No solid mass. No complex renal cyst which requires follow up, per consensus guidelines. Nodes and vessels: No retroperitoneal or mesenteric adenopathy by size criteria. Aorta and inferior vena cava are normal in size. Bowel and peritoneum: Normal colonic caliber. No free fluid. Bones and soft tissues: No ventral hernias. Bone marrow is normal in overall signal. Possible small intraosseous hemangiomas. IMPRESSION: 1. Small incidental T2 hyperintense lesions in the right liver x2. No enhancement demonstrated. However, favor atypical benign hemangiomas based on their echogenic appearance on ultrasound. 2. Gallbladder is filled with gallstones. No biliary or pancreatic ductal dilatation. Dictated by: Clint Haile M.D. on 01/10/2023 at 21:52 Approved by: Clint Haile M.D. on 01/10/2023 at 22:03
== END ==
PROVIDERS: PCP Family Medicine; Referring Provider Surgery; Visit Provider Surgery
DX: K76.9 Liver disease, unspecified (principal); K80.20 Calculus of gallbladder without cholecystitis without obstruction
CPT/HCPCS: 74183; A9579

== ENCOUNTER 2023-02-16 11:33 | Day surgery (SDC) | payer OTHER, SELFPAY ==
[2023-02-09 13:36] VITALS: BMI 30.1
[2023-02-16] VITALS (12 sets, daily range): BP systolic 98–116; BP diastolic 55–74; PULSE 42–62; RESP 11–17; TEMP 36.2–36.4; O2SAT 96–100; BMI 29.4
--- NOTE | 2023-02-16 | PATH_ITS ---
[facility] Accession Number: [id number] No. of containers..01 Tissue . 01 Material submitted: . gallbladder - GALLBLADDER . 01 Diagnosis: Gallbladder, Cholecystectomy: Cholelithiasis. No evidence of neoplasm. MRV 02/22/2023 1505 Local . 01 Electronically signed: . Jasson Rowley MD, PhD, Pathologist NPI- [id number] . 01 Gross description: . The specimen is received in formalin labeled with the patient's name, , and gallbladder, consists of an intact gallbladder measuring 9.2 x 3.0 x 2.5 cm with an unremarkable external surface. The cystic duct margin is inked blue with no pericystic lymph node identified. The lumen contains yellow faceted calculi measuring up to 1.0 cm in greatest dimension grossly obstructing the cystic duct, and admixed with green mucoid bile. The mucosa is green and trabecular with no distinct yellow discoloration, polyps, or lesions identified. The ruff average 0.2 cm thick. Polysomnograph Tech sections to include the cystic duct margin and full thickness sections are submitted in cassette A1. ([id number]) /MRV 02/18/2023 1228 Local . 01 Pathologist provided ICD-10: K80.20 . 01 CPT . 674131 Specimen Comment: A courtesy copy of this report has been sent to [phone] Performed at: 01 [facility] [address] [place] [address], [place], [place] [id number] MD Marck Moncada MD Phone: [phone]
[2023-02-16] MEDS: LACTATED RINGERS 1,000 ML 100 ML IV ×3 (12:23→15:45)
--- NOTE | 2023-02-16 13:19 | PM.HP.1 ---
History of Present Illness History of Present Illness Date Patient Seen: 02/16/23 Time Patient Seen: 13:19 Chief complaint: Laparoscopic Cholecystectomy Narrative: Laury is a 37-year-old woman who has symptomatic gallstones. See office note from December for details. [facility] Medical History (Updated 02/16/23 @ 12:20 by Ting Avilez RN) delivery delivered (~2019) Tyra's disease Surgical History (Updated 02/16/23 @ 12:20 by Ting Avilez RN) H/O: myomectomy (~2017) Social History household members: spouse Smoking Status: Former smoker alcohol intake: current Meds Home Medications and Allergies Home Medications Medication Instructions Recorded Confirmed Type mupirocin 2 % topical ointment 1 applic topical BID #15 grams 10/30/21 01/04/23 Rx levothyroxine 125 mcg tablet 125 mcg PO DAILY 02/16/23 02/16/23 History semaglutide (weight loss) 0.25 0.25 mg SUBCUT WEEKLY 02/16/23 02/16/23 History mg/0.5 mL subcutaneous pen injector ([employer]) terbinafine HCl 250 mg tablet 250 mg PO DAILY 02/16/23 02/16/23 History Allergies Allergy/AdvReac Type Severity Reaction Status Date / Time No Known Drug Allergies Allergy Verified 02/16/23 11:53 Exam Vital Signs (past 8 hours): - 02/16/23 12:17 Temperature 97.3 F L Pulse Rate 42 L Respiratory Rate 17 Blood Pressure 115/74 Pulse Oximetry 100 Oxygen Delivery Method Room Air Oxygen Delivery Method Room Air Const General: healthy appearing Resp Effort & Inspection: normal respiratory effort Assessment & Plan Assessment and plan (1) Cholelithiasis: Qualifiers: Biliary obstruction: without biliary obstruction Cholecystitis presence: without cholecystitis Cholelithiasis location: gallbladder Qualified Code(s): K80.20 - Calculus of gallbladder without cholecystitis without obstruction Status: Inactive Plan We reviewed the risks and benefits of laparoscopic cholecystectomy for symptomatic cholelithiasis and she would like to proceed.
[2023-02-16] MEDS: CEFAZOLIN 2 GM/100 ML PREMIX 100 ML IV (13:35)
--- NOTE | 2023-02-16 13:53 | SUR.OPER ---
Supine on padded OR bed, head on pillow, safety belt at thigh, bilateral arms secured on padded arm boards <90 degrees abduction. Legs uncrossed. Padded footboard in place. Tape over blanket to secure lower legs.
[2023-02-16] MEDS: BUPIVACAINE 0.5% (PF) 30 ML, EPINEPHrine 0.15 MG INJ (14:08)
[2023-02-16] MEDS: ONDANSETRON 4 MG/2 ML INJ IV (15:28)
[2023-02-16] MEDS: OXYCODONE/ACETAMINOPHEN 5/325 TABLET 1 TAB PO ×2 (15:28→15:57)
[2023-02-16] MEDS: HYDROMORPHONE 1 MG INJ IV (15:29)
[2023-02-16] MEDS: hydrOXYzine 50 MG/ML INJ 25 MG IM (15:29)
[2023-02-16] MEDS: METOCLOPRAMIDE 10 MG/2 ML INJ IV (16:39)
--- NOTE | 2023-02-25 14:33 | P.OP_ITS ---
Operative Date/Time/Diagnoses Date of procedure: 02/16/23 Pre-op diagnosis: Symptomatic cholelithiasis Post-op diagnosis: same Procedure & Clinicians Procedure: Laparoscopic cholecystectomy Same procedure as scheduled: Yes Surgeon: Devante Ontiveros Anesthesia Type: General Operative Notes Procedure in detail: The patient was given preoperative antibiotics. The patient was brought to the operating room and placed on the table in the supine position. General endotracheal anesthesia was induced. The abdomen was prepped and draped. A time-out was performed. We made a 1 cm infraumbilical incision. We dissected down to the base of the umbilical stalk using cautery. We grasped the umbilical stalk with a Marimar clamp to elevate the abdominal wall. We scored the fascia in the midline with cautery. We pierced the peritoneum with a Peon clamp. The Alana port was placed and the abdomen was insufflated to 15 mmHg. A 5 mm 30 degree laparoscopic was inserted. There was no evidence of any injury from the entry. Next, we placed 5 mm ports in the subxiphoid position and right upper q uadrant at the midclavicular line and anterior axillary line. The patient was then positioned in reverse Trendelenburg and the table was tilted to the left. The gallbladder was grasped at the dome and retracted cephalad. We then dissected the cystic structures with a combination of hook cautery and blunt dissection. We obtained a critical view. We placed clips on the cystic duct and artery and divided the cystic duct and artery sharply between the clips. The gallbladder was then dissected off the liver and placed in a specimen retrieval bag. We irrigated the right upper quadrant and all the aspirate returned clear. We then removed the 5 mm ports under direct vision we removed the Alana port. We then injected some local into the fascia and closed the fascia with 2 interrupted 0 Vicryl sutures. The skin incisions were closed with 4-0 Monocryl and Steri-Strips were applied. Band-Aids were applied over the Steri-Strips. EBL: 10 mL Specimen: Gallbladder and contents Post-operative Condition: stable Disposition: PACU
== END 2023-02-16 16:52 | disposition home or self-care (01) ==
PROVIDERS: PCP Family Medicine; Referring Provider Surgery; Visit Provider Surgery
PROC: 0FT44ZZ Resection of Gallbladder, Percutaneous Endoscopic Approach (ICD-10-PCS; CPT 47562; principal; 2023-02-16 13:15)
DX: K80.20 Calculus of gallbladder without cholecystitis without obstruction (principal)
CPT/HCPCS: 47562; J0171; J0690; J1170; J2250; J2405; J2765; J3010; J3410